=== PATIENT | female | born 1985 | race Caucasian/White ===

== ENCOUNTER 2016-11-18 17:14 | Emergency (ER) | payer MEDICAID, OTHER ==
[~2016-11-18] VITALS: Ht 172.7 cm; Wt 135.4 kg
[2016-11-18 17:19] VITALS: BP 123/77
[2016-11-18] MEDS ORDERED: HYDROmorphone 1 MG/ML, 1ML ONE (18:06)
[2016-11-18] MEDS ORDERED: HYDROmorphone 1 MG/ML, 1ML IVPush PRN (18:30)
[2016-11-18] MEDS ORDERED: HYDROmorphone 1 MG/ML, 1ML IM ONE (18:30)
== END 2016-11-18 19:24 | disposition home or self-care (01) ==
LOC: ED 19:18
DX: S39.012A Strain of muscle, fascia and tendon of lower back, initial encounter (principal); G89.29 Other chronic pain; W10.9XXA Fall (on) (from) unspecified stairs and steps, initial encounter; Y93.89 Activity, other specified; Y92.89 Other specified places as the place of occurrence of the external cause; Y99.8 Other external cause status
CPT/HCPCS: 72110; 73502; 96372; 99284; J1170; J7512

== ENCOUNTER 2019-01-26 00:19 | Emergency (ER) | payer MEDICAID ==
[~2019-01-26] VITALS: Ht 170.2 cm; Wt 126.8 kg
[2019-01-26 00:22] VITALS: BP 137/86
--- NOTE | 2019-01-26 00:57 | NUR ---
LUNCH RN: PT IN RESTROOM AT THIS TIME WITH FRIEND AT BS.
[2019-01-26] MEDS ORDERED: ACETAMINOPHEN 325 MG TABLET PO ONE (01:00)
[2019-01-26] MEDS ORDERED: ACETAMINOPHEN 325 MG TABLET ONE (01:11)
--- NOTE | 2019-01-26 01:17 | NUR ---
LUNCH RN: PT MEDICATED FOR PAIN PER MAY. PT PROVIDED WITH ICE PACK. PT BACK FROM XRAY AT THIS TIME.
== END 2019-01-26 02:51 | disposition home or self-care (01) ==
LOC: ED 00:56
DX: S52.501A Unspecified fracture of the lower end of right radius, initial encounter for closed fracture (principal); M54.5 Low back pain; M25.562 Pain in left knee; Y04.8XXA Assault by other bodily force, initial encounter; Y93.89 Activity, other specified; Y92.89 Other specified places as the place of occurrence of the external cause; Y99.8 Other external cause status
CPT/HCPCS: 29125; 72110; 99283

== ENCOUNTER 2019-02-23 09:53 | Emergency (ER) | payer SELFPAY ==
[~2019-02-23] VITALS: Ht 172.7 cm; Wt 132.0 kg
[2019-02-23 09:57] VITALS: BP 140/81
--- NOTE | 2019-02-23 10:00 | NUR ---
PT AMBULATORY WITH STEADY GAIT TO ROOM
== END 2019-02-23 10:45 | disposition home or self-care (01) ==
LOC: ED 10:39
DX: S83.92XA Sprain of unspecified site of left knee, initial encounter (principal); X58.XXXA Exposure to other specified factors, initial encounter; Y93.89 Activity, other specified; Y92.009 Unspecified place in unspecified non-institutional (private) residence as the place of occurrence of the external cause; Y99.8 Other external cause status
CPT/HCPCS: 99281

== ENCOUNTER 2019-03-06 12:10 | Emergency (ER) | payer MEDICAID, OTHER ==
[~2019-03-06] VITALS: Ht 172.7 cm; Wt 132.3 kg
[2019-03-06 13:22] VITALS: BP 133/85
[2019-03-06] MEDS ORDERED: ACETAMINOPHEN 325 MG TABLET ONE (13:58)
[2019-03-06] MEDS ORDERED: ACETAMINOPHEN 325 MG TABLET PO ONE (14:00)
--- NOTE | 2019-03-06 14:02 | NUR ---
PT HERE WITH C/O LEFT CALF PAIN AFTER FALLING OFF STEP LADDER TODAY. PT MEDICATED PER ORDERS.
--- NOTE | 2019-03-06 14:30 | NUR ---
Patient/Caregiver given discharge instructions and they have confirmed that they understand the instructions. Patient ambulatory with steady gait.
== END 2019-03-06 14:31 | disposition home or self-care (01) ==
LOC: ED 14:12
DX: O9A.211 Injury, poisoning and certain other consequences of external causes complicating pregnancy, first trimester (principal); S86.912A Strain of unspecified muscle(s) and tendon(s) at lower leg level, left leg, initial encounter; J02.0 Streptococcal pharyngitis; Z3A.01 Less than 8 weeks gestation of pregnancy; W11.XXXA Fall on and from ladder, initial encounter; Y93.89 Activity, other specified; Y92.009 Unspecified place in unspecified non-institutional (private) residence as the place of occurrence of the external cause; Y99.8 Other external cause status
CPT/HCPCS: 99283

== ENCOUNTER 2019-03-11 20:00 | Emergency (ER) | payer MEDICAID, OTHER ==
[~2019-03-11] VITALS: Ht 172.7 cm; Wt 132.9 kg
[2019-03-11 20:05] VITALS: BP 117/81
--- NOTE | 2019-03-11 20:15 | NUR ---
PT HERE WITH C/O RIGHT WRIST PAIN. PT STATES SHE FELL YESTERDAY AND IT "FEELS LIKE THE SAME TIME WHEN I BROKE IT BEFORE."
--- NOTE | 2019-03-11 20:28 | NUR ---
RADIOLOGY EXAM COMPLETED.
--- NOTE | 2019-03-11 21:06 | NUR ---
REPORT GIVEN TO JAI BALDERRAMA. CARE TRANSFERRED.
== END 2019-03-11 21:45 | disposition home or self-care (01) ==
LOC: ED 21:40
DX: S52.501A Unspecified fracture of the lower end of right radius, initial encounter for closed fracture (principal); W18.30XA Fall on same level, unspecified, initial encounter; Y93.89 Activity, other specified; Y92.009 Unspecified place in unspecified non-institutional (private) residence as the place of occurrence of the external cause; Y99.8 Other external cause status
CPT/HCPCS: 29125; 99283

== ENCOUNTER 2019-03-26 23:13 | Emergency (ER) | payer MEDICAID, OTHER ==
[~2019-03-26] VITALS: Ht 172.7 cm; Wt 134.0 kg
[2019-03-26 23:23] VITALS: BP 135/83
== END 2019-03-27 00:47 | disposition home or self-care (01) ==
LOC: ED 03-27 00:28
DX: G89.11 Acute pain due to trauma (principal); M79.675 Pain in left toe(s); X58.XXXA Exposure to other specified factors, initial encounter; Y93.89 Activity, other specified; Y92.009 Unspecified place in unspecified non-institutional (private) residence as the place of occurrence of the external cause; Y99.8 Other external cause status
CPT/HCPCS: 99283

== ENCOUNTER 2019-04-21 16:55 | Emergency (ER) | payer MEDICAID ==
[~2019-04-21] VITALS: Ht 172.7 cm; Wt 132.8 kg
[2019-04-21 17:31] VITALS: BP 111/66
--- NOTE | 2019-04-21 17:47 | NUR ---
patient arrives with ankle and knee pain from an injury roller skating. able to walk on leg.
== END 2019-04-21 19:28 | disposition home or self-care (01) ==
LOC: ED 17:50
DX: S93.402A Sprain of unspecified ligament of left ankle, initial encounter (principal); S93.602A Unspecified sprain of left foot, initial encounter; Z72.9 Problem related to lifestyle, unspecified; X50.1XXA Overexertion from prolonged static or awkward postures, initial encounter; Y93.21 Activity, ice skating; Y92.89 Other specified places as the place of occurrence of the external cause; Y99.8 Other external cause status
CPT/HCPCS: 99283